=== PATIENT | male | born 1990 | race Caucasian/White ===

== ENCOUNTER 2023-07-30 17:37 | Emergency (ER) | payer MEDICAID ==
[~2023-07-30] VITALS: Ht 167.6 cm; Wt 99.8 kg
[~2023-07-30 17:37] MED LIST: ARIP15TA1 PO
[2023-07-30 18:32] VITALS: BP 120/72; PULSE 96; RESP 18; TEMP 98.2; O2SAT 98
[2023-07-30] MEDS ORDERED: ACETAMINOPHEN EXTRA STRENGTH 500 MG TAB PO ONE (18:50)
[2023-07-30] MEDS ORDERED: ACET-10509 PO (20:12)
[2023-07-30 21:45] VITALS: BP 120/72; PULSE 96; RESP 18; TEMP 98.2; O2SAT 98
== END 2023-07-30 21:45 | disposition home or self-care (01) ==
LOC: MED 17:37
DX: R51.9 Headache, unspecified (principal); M79.621 Pain in right upper arm; M25.561 Pain in right knee; M25.562 Pain in left knee; M25.511 Pain in right shoulder; I10 Essential (primary) hypertension; Z79.899 Other long term (current) drug therapy; Y08.89XA Assault by other specified means, initial encounter; Y93.01 Activity, walking, marching and hiking; Y92.89 Other specified places as the place of occurrence of the external cause; Y99.8 Other external cause status
CPT/HCPCS: 70100; 70450; 70486; 73000; 99284